=== PATIENT | male | born 1970 | race Two or more races ===

== ENCOUNTER 2023-02-06 22:50 | Inpatient (IN) | payer MEDICAID, OTHER ==
[~2023-02-06] VITALS: Ht 172.7 cm; Wt 71.0 kg
[2023-02-06] MEDS ORDERED: cloNIDine HCL 0.1 MG TAB PO ONE (23:15)
[2023-02-06 23:38] LABS: Basophils # (auto) 0 10 ^3/uL (0-0.2); Basophils % (auto) 0.4 % (0.0-2.0); Eosinophils # (auto) 0.1 10 ^3/uL (0-0.8); Eosinophils % (auto) 0.9 % (0.0-7.0); Hematocrit 47.7 % (41.0-53.0); Hemoglobin 16.9 g/dL (13.5-17.5); Lymphocytes # (auto) 2.1 10 ^3/uL (0.4-5.4); Lymphocytes % (auto) 32.8 % (10.0-50.0); Mean Corpuscular Hemoglobin 32.6 pg (28.0-32.0); Mean Corpuscular Hgb Conc. 35.5 g/dL (32.0-36.0); Monocytes # (auto) 0.6 10 ^3/uL (0-1.3); Neutrophils # (auto) 3.7 10 ^3/uL (1.6-8.6); Neutrophils % (auto) 56.9 % (37.0-80.0); Nucleated Red Blood Cells % 0.2 %; Red Blood Cells 5.18 10^6/uL (4.5-5.90); Red Cell Distribution Width 13.4 % (11.8-14.3); White Blood Cell 6.5 10^3/uL (4.4-10.8)
[2023-02-06 23:45] LABS: Alanine Aminotransferase 43 U/L (7-40); Albumin 4.7 g/dL (3.2-4.8); Alkaline Phosphatase 183 U/L (46-116); Anion Gap 8 (5-15); Aspartate Aminotransferase 41 U/L (13-40); Blood Urea Nitrogen 13 mg/dL (9-23); Calcium 9.7 mg/dL (8.7-10.4); Carbon Dioxide 26 mmol/L (20-30); Chloride 98 mmol/L (98-107); Glucose 328 mg/dL (74-106); Magnesium 1.9 mg/dL (1.6-2.6); Potassium 3.7 mmol/L (3.5-5.1); Sodium 132 mmol/L (136-145)
[2023-02-06 23:46] LABS: Bilirubin, Total 2.2 mg/dL (0.2-1.0); Total Protein 7.8 g/dL (5.7-8.2)
[2023-02-06 23:51] LABS: INR 1.05 (0.9-1.15); Partial Thromboplastin Time 27.5 SEC (24.5-34.5)
[2023-02-07 00:40] VITALS: PULSE 93; RESP 18; O2SAT 94
[2023-02-07] MEDS ORDERED: PANTOPRAZOLE 40 MG/10 ML VIAL INJ IV ONE (04:00)
[2023-02-07] MEDS ORDERED: ASPirin 81 mg TAB PO ONE (04:00)
[2023-02-07] MEDS ORDERED: NITROGLYCERIN 0.2MG/HR TOPICAL PATCH TD ONE (04:00)
[2023-02-07] MEDS ORDERED: InsuLIN REG 1unit/0.01ml Soln (100units/ml) IV ONE (04:00)
[2023-02-07] MEDS ORDERED: ENOXAPARIN SOD 100 MG/1 ML SYRINGE SC ONE (04:00)
[2023-02-07] MEDS ORDERED: SODIUM CHLORIDE 0.9% 1,000 ML IVB ONE (04:00)
[2023-02-07] MEDS ORDERED: ONDANSETRON HCL 4 MG/2 ML VIAL IV ONE (04:00)
[2023-02-07] MEDS: ACETAMINOPHEN 325 MG TAB PO ONE ×2 (04:12→04:28)
[2023-02-07] MEDS ORDERED: ONDANSETRON HCL 4 MG/2 ML VIAL IV PRN (04:30)
[2023-02-07] MEDS ORDERED: HYDROcodone-ACET 5/325MG TAB PO PRN (04:30)
[2023-02-07] MEDS ORDERED: SODIUM CHLORIDE 0.9% 1,000 ML IV SCH (04:30)
[2023-02-07] MEDS ORDERED: DOCUSATE SOD 100 MG CAP PO PRN (04:30)
[2023-02-07] MEDS ORDERED: MORPHINE SULFATE INJ 2 MG/ml SYRG IV PRN ×2 (04:30→04:45)
[2023-02-07] MEDS ORDERED: DEXTROSE (50%) 50ML SYRG IV PRN (04:30)
[2023-02-07] MEDS ORDERED: NITROGLYCERIN 0.4 MG SL TAB SL PRN (04:45)
[2023-02-07 04:57] LABS: Urine Bacteria NONE SEEN /hpf (None Seen); Urine Blood TRACE /uL (Negative); Urine Clarity Clear (Clear); Urine Color Yellow (Yellow); Urine Protein, UAD 2+ (Negative); Urine Specific Gravity 1.045 (1.001-1.035); Urine WBC 2 /hpf (0 - 3); Urine pH 6.5 (5.0-8.0)
[2023-02-07 05:10] LABS: Basophils # (auto) 0 10 ^3/uL (0-0.2); Basophils % (auto) 0.3 % (0.0-2.0); Eosinophils # (auto) 0.1 10 ^3/uL (0-0.8); Eosinophils % (auto) 1.6 % (0.0-7.0); Hematocrit 41.5 % (41.0-53.0); Hemoglobin 14.7 g/dL (13.5-17.5); Lymphocytes # (auto) 1.7 10 ^3/uL (0.4-5.4); Lymphocytes % (auto) 33.9 % (10.0-50.0); Mean Corpuscular Hemoglobin 32.8 pg (28.0-32.0); Mean Corpuscular Hgb Conc. 35.4 g/dL (32.0-36.0); Mean Corpuscular Volume 92.6 fL (80.0-100.0); Monocytes # (auto) 0.5 10 ^3/uL (0-1.3); Monocytes % (auto) 9.8 % (0.0-12.0); Neutrophils # (auto) 2.8 10 ^3/uL (1.6-8.6); Neutrophils % (auto) 54.4 % (37.0-80.0); Nucleated Red Blood Cells % 0.1 %; Red Blood Cells 4.48 10^6/uL (4.5-5.90); Red Cell Distribution Width 13.6 % (11.8-14.3); White Blood Cell 5.2 10^3/uL (4.4-10.8)
[2023-02-07] MEDS: ACCU-CHEK COMFORT CURVE STRIP VI SCH ×3 (06:00→18:58)
[2023-02-07] MEDS: InsuLIN REG 1unit/0.01ml Soln (100units/ml) SC SCH ×3 (06:01→19:02)
[2023-02-07 07:20] VITALS: PULSE 80; RESP 16; O2SAT 95
[2023-02-07 09:43] LABS: Alanine Aminotransferase 37 U/L (7-40); Albumin 3.8 g/dL (3.2-4.8); Alkaline Phosphatase 142 U/L (46-116); Anion Gap 11 (5-15); Aspartate Aminotransferase 43 U/L (13-40); BUN/Creatinine Ratio 15.7 (10.0-20.0); Bilirubin, Total 1.6 mg/dL (0.2-1.0); Blood Urea Nitrogen 13 mg/dL (9-23); Calcium 9.2 mg/dL (8.5-10.1); Carbon Dioxide 22 mmol/L (20-30); Chloride 101 mmol/L (98-107); Glucose 233 mg/dL (74-106); Potassium 3.2 mmol/L (3.5-5.1); Sodium 134 mmol/L (136-145); Total Protein 6.3 g/dL (5.7-8.2)
[2023-02-07] MEDS ORDERED: PANTOPRAZOLE 40 MG/10 ML VIAL INJ IV SCH (10:00)
[2023-02-07] MEDS: ASPirin 81 mg TAB PO SCH (11:40)
[2023-02-07] MEDS: ENOXAPARIN SOD 100 MG/1 ML SYRINGE SC SCH ×2 (11:41→21:22)
[2023-02-07] MEDS ORDERED: AZITHROMYCIN 250 MG TAB PO ONE (13:45)
[2023-02-07 16:27] LABS: COVID19 ANTIGEN SOFIA FIA NEGATIVE (NEGATIVE)
[2023-02-07] MEDS: ACETAMINOPHEN 500 MG TAB PO PRN (19:51)
[2023-02-07] MEDS: cloNIDine HCL 0.1 MG TAB PO PRN (21:14)
[2023-02-07] MEDS ORDERED: ATORVASTATIN 20 MG TAB PO SCH (22:00)
[2023-02-08] MEDS: ACCU-CHEK COMFORT CURVE STRIP VI SCH ×4 (00:28→18:00)
[2023-02-08] MEDS: InsuLIN REG 1unit/0.01ml Soln (100units/ml) SC SCH ×4 (00:39→18:00)
[2023-02-08 05:37] LABS: Basophils # (auto) 0 10 ^3/uL (0-0.2); Eosinophils # (auto) 0.1 10 ^3/uL (0-0.8); Hemoglobin 14.4 g/dL (13.5-17.5); Lymphocytes # (auto) 1.4 10 ^3/uL (0.4-5.4); Monocytes # (auto) 0.4 10 ^3/uL (0-1.3); Neutrophils # (auto) 1.7 10 ^3/uL (1.6-8.6); Red Cell Distribution Width 13.5 % (11.8-14.3)
[2023-02-08 05:40] LABS: Basophils % (auto) 0.5 % (0.0-2.0); Eosinophils % (auto) 1.7 % (0.0-7.0); Hematocrit 40.3 % (41.0-53.0); Mean Corpuscular Hgb Conc. 35.8 g/dL (32.0-36.0); Mean Corpuscular Volume 92.3 fL (80.0-100.0); Monocytes % (auto) 10.7 % (0.0-12.0); Neutrophils % (auto) 48.1 % (37.0-80.0); Nucleated Red Blood Cells % 0.5 %; Red Blood Cells 4.37 10^6/uL (4.5-5.90); White Blood Cell 3.5 10^3/uL (4.4-10.8)
[2023-02-08 05:45] LABS: Alanine Aminotransferase 42 U/L (7-40); Albumin 3.7 g/dL (3.2-4.8); Alkaline Phosphatase 128 U/L (46-116); Anion Gap 6 (5-15); Aspartate Aminotransferase 48 U/L (13-40); BUN/Creatinine Ratio 13.7 (10.0-20.0); Bilirubin, Total 1.7 mg/dL (0.2-1.0); Blood Urea Nitrogen 14 mg/dL (9-23); Calcium 8.7 mg/dL (8.7-10.4); Carbon Dioxide 25 mmol/L (20-30); Chloride 103 mmol/L (98-107); Glucose 331 mg/dL (74-106); Potassium 3.6 mmol/L (3.5-5.1); Sodium 134 mmol/L (136-145); Total Protein 6.1 g/dL (5.7-8.2)
[2023-02-08] MEDS ORDERED: ADENOSINE 78 MG in GIVE UN-DILUTED 0 ML IV STA (07:19)
[2023-02-08 08:20] VITALS: BP 141/92; PULSE 99; RESP 16; TEMP 97.8; O2SAT 97
[2023-02-08] MEDS ORDERED: AZITHROMYCIN 250 MG TAB PO SCH (10:00)
[2023-02-08] MEDS ORDERED: LISINOPRIL 10 MG TAB PO ONE (11:45)
[2023-02-08] MEDS: ASPirin 81 mg TAB PO SCH (12:46)
[2023-02-08] MEDS: PANTOPRAZOLE 40 MG TAB PO SCH (12:47)
[2023-02-08 13:28] VITALS: BP 159/117; PULSE 102; RESP 18; TEMP 97.6; O2SAT 98
[2023-02-08 17:17] VITALS: BP 148/99; PULSE 65; RESP 20; TEMP 98.4; O2SAT 94
[2023-02-08 20:00] VITALS: PULSE 98; RESP 18; O2SAT 98
[2023-02-08 22:00] VITALS: BP 144/90; PULSE 69; RESP 20; TEMP 98.3; O2SAT 95
[2023-02-08] MEDS: ATORVASTATIN 20 MG TAB PO SCH (22:21)
[2023-02-09] VITALS (7 sets, daily range): BP systolic 142–159; BP diastolic 62–100; PULSE 66–93; RESP 15–22; TEMP 97.7–98.5; O2SAT 94–98
[2023-02-09] MEDS: ACCU-CHEK COMFORT CURVE STRIP VI SCH ×4 (00:48→18:10)
[2023-02-09] MEDS: InsuLIN REG 1unit/0.01ml Soln (100units/ml) SC SCH ×4 (00:49→18:12)
[2023-02-09] MEDS: ACETAMINOPHEN 500 MG TAB PO PRN (01:15)
[2023-02-09 07:04] LABS: Chloride 104 mmol/L (98-107); Potassium 3.6 mmol/L (3.5-5.1); Sodium 136 mmol/L (136-145)
[2023-02-09 07:05] LABS: Anion Gap 8 (5-15); Calcium 9.4 mg/dL (8.5-10.1); Carbon Dioxide 24 mmol/L (20-30)
[2023-02-09 07:10] LABS: BUN/Creatinine Ratio 11.5 (10.0-20.0); Blood Urea Nitrogen 10 mg/dL (9-23); Triglycerides 157 mg/dL (< 150)
[2023-02-09 07:11] LABS: LDL Cholesterol 97 mg/dL (< 100)
[2023-02-09 07:12] LABS: Cholesterol 175 mg/dL (< 200); HDL Cholesterol 54 mg/dL (40-59)
[2023-02-09 07:18] LABS: Glucose 207 mg/dL (74-106)
[2023-02-09] MEDS: PANTOPRAZOLE 40 MG TAB PO SCH (09:58)
[2023-02-09] MEDS: ASPirin 81 mg TAB PO SCH (09:58)
[2023-02-09] MEDS ORDERED: LISINOPRIL 10 MG TAB PO SCH (10:00)
[2023-02-09] MEDS ORDERED: METOPROLOL TARTRATE 25 MG TAB PO ONE (12:45)
[2023-02-09] MEDS ORDERED: LISINOPRIL 10 MG TAB PO ONE (14:15)
[2023-02-09] MEDS: METOPROLOL TARTRATE 25 MG TAB PO SCH (22:18)
[2023-02-09] MEDS: ATORVASTATIN 20 MG TAB PO SCH (22:18)
[2023-02-10] VITALS (10 sets, daily range): BP systolic 113–161; BP diastolic 59–102; PULSE 74–101; RESP 12–22; TEMP 97.8–98.6; O2SAT 93–98
[2023-02-10] MEDS: InsuLIN REG 1unit/0.01ml Soln (100units/ml) SC SCH ×4 (01:00→17:19)
[2023-02-10] MEDS: ACCU-CHEK COMFORT CURVE STRIP VI SCH ×4 (01:00→17:16)
[2023-02-10] MEDS: cloNIDine HCL 0.1 MG TAB PO PRN ×2 (04:45→23:30)
[2023-02-10] MEDS: ASPirin 81 mg TAB PO SCH (09:43)
[2023-02-10] MEDS: PANTOPRAZOLE 40 MG TAB PO SCH (09:44)
[2023-02-10] MEDS: METOPROLOL TARTRATE 25 MG TAB PO SCH ×2 (09:46→22:38)
[2023-02-10] MEDS: LISINOPRIL 10 MG TAB PO SCH (09:46)
[2023-02-10] MEDS ORDERED: IODIXANOL 320MG/ML 100ML BTL IV ONE (14:22)
[2023-02-10] MEDS ORDERED: LIDOCAINE 2%HCL (LOCAL ANESTH.) INJ 20ML MDV ONE (14:23)
[2023-02-10] MEDS ORDERED: fentaNYL CITRATE 100 MCG/2 ML VL ONE (14:40)
[2023-02-10] MEDS ORDERED: MIDAZOLAM HCL 2MG/2ML 2ml VIAL (1mg/ml) ONE (14:40)
[2023-02-10] MEDS ORDERED: VERAPAMIL 2.5MG/ML INJ 2ML VIAL IV ONE (14:40)
[2023-02-10] MEDS ORDERED: HEPARIN SODIUM (PORCINE) 5000 UNITS/ML 1ML VIAL ONE (14:40)
[2023-02-10] MEDS ORDERED: ANGIOMAX 250 MG VIAL IV ONE (14:40)
[2023-02-10] MEDS ORDERED: SODIUM CHL 0.9% 50 ML ONE (14:40)
[2023-02-10] MEDS ORDERED: CLOPIDOGREL 300 MG TAB ONE (15:22)
[2023-02-10] MEDS ORDERED: ASPirin 81 mg TAB ONE (15:23)
[2023-02-10 18:52] LABS: Basophils # (auto) 0 10 ^3/uL (0-0.2); Basophils % (auto) 0.6 % (0.0-2.0); Eosinophils # (auto) 0.1 10 ^3/uL (0-0.8); Eosinophils % (auto) 1.2 % (0.0-7.0); Hematocrit 47.6 % (41.0-53.0); Hemoglobin 16.6 g/dL (13.5-17.5); Lymphocytes # (auto) 1.8 10 ^3/uL (0.4-5.4); Lymphocytes % (auto) 34.3 % (10.0-50.0); Mean Corpuscular Hemoglobin 32.5 pg (28.0-32.0); Mean Corpuscular Hgb Conc. 34.9 g/dL (32.0-36.0); Mean Corpuscular Volume 93.2 fL (80.0-100.0); Monocytes # (auto) 0.5 10 ^3/uL (0-1.3); Neutrophils # (auto) 2.9 10 ^3/uL (1.6-8.6); Neutrophils % (auto) 54.9 % (37.0-80.0); Nucleated Red Blood Cells % 0.3 %; Red Blood Cells 5.11 10^6/uL (4.5-5.90); White Blood Cell 5.4 10^3/uL (4.4-10.8)
[2023-02-10 19:09] LABS: INR 1.22 (0.9-1.15); Partial Thromboplastin Time 42.5 SEC (24.5-34.5); Prothrombin Time 12.6 sec (9.3-11.8)
[2023-02-10] MEDS ORDERED: INSULIN LANTUS (GLARGINE) 1 /0.01ml (100units/ml) SC SCH (22:00)
[2023-02-10] MEDS: ATORVASTATIN 20 MG TAB PO SCH (22:36)
[2023-02-11] VITALS (7 sets, daily range): BP systolic 120–143; BP diastolic 70–93; PULSE 66–100; RESP 19–20; TEMP 36.9; O2SAT 96–100
[2023-02-11] MEDS: InsuLIN REG 1unit/0.01ml Soln (100units/ml) SC SCH ×4 (00:44→18:00)
[2023-02-11] MEDS: ACCU-CHEK COMFORT CURVE STRIP VI SCH ×4 (06:19→18:00)
[2023-02-11 06:51] LABS: Anion Gap 7 (5-15); Carbon Dioxide 25 mmol/L (20-30); Chloride 102 mmol/L (98-107); Potassium 3.6 mmol/L (3.5-5.1); Sodium 134 mmol/L (136-145)
[2023-02-11 06:52] LABS: Calcium 9.1 mg/dL (8.5-10.1)
[2023-02-11 06:57] LABS: BUN/Creatinine Ratio 17.1 (10.0-20.0); Blood Urea Nitrogen 19 mg/dL (9-23); Glucose 235 mg/dL (74-106)
[2023-02-11 06:58] LABS: Basophils # (auto) 0 10 ^3/uL (0-0.2); Basophils % (auto) 0.3 % (0.0-2.0); Eosinophils # (auto) 0.1 10 ^3/uL (0-0.8); Eosinophils % (auto) 1.8 % (0.0-7.0); Hematocrit 41.3 % (41.0-53.0); Hemoglobin 14.7 g/dL (13.5-17.5); Lymphocytes # (auto) 1.5 10 ^3/uL (0.4-5.4); Mean Corpuscular Hemoglobin 33.1 pg (28.0-32.0); Mean Corpuscular Hgb Conc. 35.6 g/dL (32.0-36.0); Mean Corpuscular Volume 92.8 fL (80.0-100.0); Monocytes # (auto) 0.7 10 ^3/uL (0-1.3); Monocytes % (auto) 11.5 % (0.0-12.0); Neutrophils # (auto) 3.6 10 ^3/uL (1.6-8.6); Neutrophils % (auto) 60.4 % (37.0-80.0); Nucleated Red Blood Cells % 0.6 %; Red Blood Cells 4.45 10^6/uL (4.5-5.90); Red Cell Distribution Width 13.7 % (11.8-14.3); White Blood Cell 5.9 10^3/uL (4.4-10.8)
[2023-02-11] MEDS: ASPirin 81 mg TAB PO SCH (09:20)
[2023-02-11] MEDS: LISINOPRIL 10 MG TAB PO SCH (09:21)
[2023-02-11] MEDS: METOPROLOL TARTRATE 25 MG TAB PO SCH (09:22)
[2023-02-11] MEDS: PANTOPRAZOLE 40 MG TAB PO SCH (09:22)
[2023-02-11] MEDS ORDERED: CLOPIDOGREL BISULFATE 75 MG TAB PO SCH (10:00)
[2023-02-11] MEDS ORDERED: ATOR20TA50 PO (13:08)
[2023-02-11] MEDS ORDERED: METF-371 PO (13:08)
[2023-02-11] MEDS ORDERED: METO25TA36 PO (13:08)
[2023-02-11] MEDS ORDERED: CLOP75TA70 PO (13:08)
[2023-02-11] MEDS ORDERED: GLIM2TAB33 PO (13:08)
[2023-02-11] MEDS ORDERED: LISI10TA34 PO (13:08)
[2023-02-11] MEDS ORDERED: ASPI-325 PO (13:08)
[2023-02-11] MEDS ORDERED: PANT40T PO (13:08)
== END 2023-02-11 19:00 | disposition home or self-care (01) | DRG 175 ==
LOC: ER 22:50 → TELE 02-07 04:41 → TELE-WESTW 02-08 09:01
PROVIDERS: ADMIT Nurse Practitioner Family; ATTEND Internal Medicine
PROC: 02703DZ Dilation of Coronary Artery, One Artery with Intraluminal Device, Percutaneous Approach (ICD-10-PCS; principal; 2023-02-10)
PROC: B2111ZZ Fluoroscopy of Multiple Coronary Arteries using Low Osmolar Contrast (ICD-10-PCS; 2023-02-10)
PROC: B2151ZZ Fluoroscopy of Left Heart using Low Osmolar Contrast (ICD-10-PCS; 2023-02-10)
PROC: 4A023N7 Measurement of Cardiac Sampling and Pressure, Left Heart, Percutaneous Approach (ICD-10-PCS; 2023-02-10)
PROC: 4A033BC Measurement of Arterial Pressure, Coronary, Percutaneous Approach (ICD-10-PCS; 2023-02-10)
DX: T82.855A Stenosis of coronary artery stent, initial encounter (principal); I21.4 Non-ST elevation (NSTEMI) myocardial infarction; D69.6 Thrombocytopenia, unspecified; E87.1 Hypo-osmolality and hyponatremia; I16.0 Hypertensive urgency; I25.10 Atherosclerotic heart disease of native coronary artery without angina pectoris; E78.5 Hyperlipidemia, unspecified; E11.65 Type 2 diabetes mellitus with hyperglycemia; E78.00 Pure hypercholesterolemia, unspecified; I10 Essential (primary) hypertension; Z20.822 Contact with and (suspected) exposure to COVID-19; Y83.8 Other surgical procedures as the cause of abnormal reaction of the patient, or of later complication, without mention of misadventure at the time of the procedure; R74.01 Elevation of levels of liver transaminase levels; F10.10 Alcohol abuse, uncomplicated; Y90.9 Presence of alcohol in blood, level not specified; Z82.49 Family history of ischemic heart disease and other diseases of the circulatory system; Y92.89 Other specified places as the place of occurrence of the external cause; Z91.199 Patient's noncompliance with other medical treatment and regimen due to unspecified reason; Z79.02 Long term (current) use of antithrombotics/antiplatelets; Z79.82 Long term (current) use of aspirin; Z79.899 Other long term (current) drug therapy; Z79.84 Long term (current) use of oral hypoglycemic drugs
CPT/HCPCS: 36415; 71045; 78452; 80048; 80053; 80061; 81001; 82962; 83036; 83735; 83880; 84484; 85025; 85610; 85730; 86850; 86900; 86901; 87426; 92941; 93005; 93017; 93306; 93458; 99152; C1887; C9113; G0378; J0153; J1815; J2250; Q9967

== ENCOUNTER 2023-02-25 00:49 | Inpatient (IN) | payer MEDICAID ==
[~2023-02-25] VITALS: Ht 172.7 cm; Wt 88.2 kg
[~2023-02-25 00:49] MED LIST: ASPI-325 PO; ATOR20TA50 PO; CLOP75TA70 PO; GLIM2TAB33 PO; LISI10TA34 PO; METF-371 PO; METO25TA36 PO; PANT40T PO
[2023-02-25 02:26] LABS: Basophils # (auto) 0 10 ^3/uL (0-0.2); Basophils % (auto) 0.7 % (0.0-2.0); Eosinophils # (auto) 0.1 10 ^3/uL (0-0.8); Eosinophils % (auto) 1.6 % (0.0-7.0); Hematocrit 45.2 % (41.0-53.0); Hemoglobin 15.7 g/dL (13.5-17.5); Lymphocytes % (auto) 33.5 % (10.0-50.0); Mean Corpuscular Hemoglobin 32.5 pg (28.0-32.0); Mean Corpuscular Hgb Conc. 34.8 g/dL (32.0-36.0); Mean Corpuscular Volume 93.2 fL (80.0-100.0); Monocytes # (auto) 0.4 10 ^3/uL (0-1.3); Monocytes % (auto) 7.5 % (0.0-12.0); Neutrophils # (auto) 3.3 10 ^3/uL (1.6-8.6); Neutrophils % (auto) 56.7 % (37.0-80.0); Nucleated Red Blood Cells % 0.1 %; Red Blood Cells 4.85 10^6/uL (4.5-5.90); Red Cell Distribution Width 13.3 % (11.8-14.3); White Blood Cell 5.8 10^3/uL (4.4-10.8)
[2023-02-25 02:45] LABS: INR 1.08 (0.9-1.15); Prothrombin Time 11.3 sec (9.3-11.8)
[2023-02-25 02:52] LABS: Alanine Aminotransferase 45 U/L (7-40); Albumin 4.7 g/dL (3.2-4.8); Alkaline Phosphatase 170 U/L (46-116); Anion Gap 8 (5-15); Aspartate Aminotransferase 29 U/L (13-40); BUN/Creatinine Ratio 15.2 (10.0-20.0); Bilirubin, Total 1.1 mg/dL (0.2-1.0); Blood Urea Nitrogen 17 mg/dL (9-23); Calcium 9.4 mg/dL (8.7-10.4); Carbon Dioxide 26 mmol/L (20-30); Chloride 104 mmol/L (98-107); Glucose 249 mg/dL (74-106); Magnesium 1.6 mg/dL (1.6-2.6); Potassium 4.1 mmol/L (3.5-5.1); Sodium 138 mmol/L (136-145); Total Protein 7.3 g/dL (5.7-8.2)
[2023-02-25] MEDS ORDERED: ENOXAPARIN SOD 100 MG/1 ML SYRINGE SC ONE (06:00)
[2023-02-25] MEDS ORDERED: ASPirin 325 MG TAB PO ONE (06:00)
[2023-02-25] MEDS ORDERED: METOPROLOL TARTRATE 1MG/1ML-5ML VIAL IV ONE (06:00)
[2023-02-25 06:37] VITALS: PULSE 100; RESP 20; O2SAT 98
[2023-02-25] MEDS ORDERED: ACETAMINOPHEN 325 MG TAB PO PRN (12:00)
[2023-02-25] MEDS ORDERED: ONDANSETRON HCL 4 MG/2 ML VIAL IV PRN (12:00)
[2023-02-25] MEDS ORDERED: MORPHINE SULFATE 4 MG/ML SYR/VIAL IV PRN (12:00)
[2023-02-25] MEDS ORDERED: NITROGLYCERIN 0.4 MG SL TAB SL PRN (12:00)
[2023-02-25] MEDS ORDERED: DEXTROSE (50%) 50ML SYRG IV PRN (12:00)
[2023-02-25 13:46] LABS: INR 1.09 (0.9-1.15); Prothrombin Time 11.4 sec (9.3-11.8)
[2023-02-25] MEDS ORDERED: ACETAMINOPHEN 650 mg PER 20.3 mL UD PO STA (14:44)
[2023-02-25] MEDS ORDERED: hydrALAZINE HCL 20 MG/ML VL IV PRN (15:45)
[2023-02-25 16:53] VITALS: BP 157/98; PULSE 103; RESP 16; TEMP 97.5; O2SAT 99
[2023-02-25] MEDS ORDERED: ACETAMINOPHEN 325 MG TAB PO ONE (16:56)
[2023-02-25] MEDS ORDERED: hydrALAZINE HCL 20 MG/ML VL ONE (16:56)
[2023-02-25] MEDS: hydrALAZINE HCL 20 MG/ML VL IV PRN (17:00)
[2023-02-25 17:45] VITALS: BP 135/84; PULSE 100
[2023-02-25] MEDS ORDERED: InsuLIN REG 1unit/0.01ml Soln (100units/ml) ONE ×2 (18:27→22:51)
[2023-02-25] MEDS: ACCU-CHEK COMFORT CURVE STRIP VI SCH ×2 (18:28→23:12)
[2023-02-25] MEDS: InsuLIN REG 1unit/0.01ml Soln (100units/ml) SC SCH (18:29)
[2023-02-25 19:30] VITALS: BP 153/91; PULSE 88; RESP 18; RESP 20; TEMP 97.3; O2SAT 91; O2SAT 98
[2023-02-25 19:50] VITALS: BP 153/91; PULSE 108; PULSE 88; RESP 20; TEMP 97.3; O2SAT 91
[2023-02-25] MEDS ORDERED: ATORVASTATIN 20 MG TAB PO SCH (22:00)
[2023-02-25] MEDS ORDERED: InsuLIN REG 1unit/0.01ml Soln (100units/ml) SC SCH (22:00)
[2023-02-25] MEDS ORDERED: METOPROLOL TARTRATE 25 MG TAB PO SCH (22:00)
[2023-02-25 23:54] VITALS: BP 153/91; PULSE 88; RESP 20; TEMP 97.3; O2SAT 98
[2023-02-26 05:40] VITALS: BP 152/84; PULSE 79; RESP 18; TEMP 97.5; O2SAT 97
[2023-02-26] MEDS: hydrALAZINE HCL 20 MG/ML VL IV PRN (05:54)
[2023-02-26 05:57] LABS: Basophils # (auto) 0 10 ^3/uL (0-0.2); Basophils % (auto) 0.7 % (0.0-2.0); Eosinophils # (auto) 0.1 10 ^3/uL (0-0.8); Eosinophils % (auto) 2.3 % (0.0-7.0); Hematocrit 43.1 % (41.0-53.0); Hemoglobin 15.2 g/dL (13.5-17.5); Lymphocytes # (auto) 2.6 10 ^3/uL (0.4-5.4); Lymphocytes % (auto) 44.4 % (10.0-50.0); Mean Corpuscular Hemoglobin 32.5 pg (28.0-32.0); Mean Corpuscular Hgb Conc. 35.2 g/dL (32.0-36.0); Mean Corpuscular Volume 92.3 fL (80.0-100.0); Monocytes # (auto) 0.6 10 ^3/uL (0-1.3); Monocytes % (auto) 10.3 % (0.0-12.0); Neutrophils # (auto) 2.5 10 ^3/uL (1.6-8.6); Neutrophils % (auto) 42.3 % (37.0-80.0); Nucleated Red Blood Cells % 0.3 %; Red Blood Cells 4.67 10^6/uL (4.5-5.90); Red Cell Distribution Width 13.4 % (11.8-14.3); White Blood Cell 5.9 10^3/uL (4.4-10.8)
[2023-02-26] MEDS: ACCU-CHEK COMFORT CURVE STRIP VI SCH ×3 (05:58→17:00)
[2023-02-26] MEDS: InsuLIN REG 1unit/0.01ml Soln (100units/ml) SC SCH ×3 (05:58→17:00)
[2023-02-26 06:19] LABS: Alanine Aminotransferase 45 U/L (7-40); Alkaline Phosphatase 140 U/L (46-116); Anion Gap 11 (5-15); BUN/Creatinine Ratio 16.7 (10.0-20.0); Blood Urea Nitrogen 14 mg/dL (9-23); Calcium 9.7 mg/dL (8.5-10.1); Carbon Dioxide 24 mmol/L (20-30); Chloride 104 mmol/L (98-107); Potassium 3.9 mmol/L (3.5-5.1); Sodium 139 mmol/L (136-145)
[2023-02-26 06:20] LABS: Albumin 4.5 g/dL (3.2-4.8); Aspartate Aminotransferase 30 U/L (13-40); Bilirubin, Total 1.2 mg/dL (0.2-1.0); Total Protein 7.1 g/dL (5.7-8.2)
[2023-02-26 06:37] LABS: Glucose 127 mg/dL (74-106)
[2023-02-26 06:40] VITALS: BP 142/81
[2023-02-26 08:00] VITALS: BP 152/77; PULSE 81; PULSE 85; RESP 16; RESP 20; TEMP 97.5; O2SAT 91
[2023-02-26 09:00] VITALS: BP 152/77; PULSE 85; RESP 16; TEMP 97.5; O2SAT 98
[2023-02-26] MEDS ORDERED: ASPirin-EC 81 mg tab PO SCH (10:00)
[2023-02-26] MEDS ORDERED: LISINOPRIL 10 MG TAB PO SCH (10:00)
[2023-02-26] MEDS ORDERED: DOCUSATE SOD 100 MG CAP PO SCH (10:00)
[2023-02-26] MEDS ORDERED: CLOPIDOGREL BISULFATE 75 MG TAB PO SCH (10:00)
[2023-02-26] MEDS ORDERED: PANTOPRAZOLE 40 MG TAB PO SCH (10:00)
[2023-02-26] MEDS ORDERED: MET50T PO (10:45)
[2023-02-26] MEDS ORDERED: SACU1TAB PO (10:45)
[2023-02-26] MEDS ORDERED: EMPA1TAB PO (10:45)
[2023-02-26] MEDS ORDERED: EMPAGLIFLOZIN 10 MG TAB PO SCH (10:48)
[2023-02-26] MEDS ORDERED: IBUPROFEN 400 MG TAB PO ONE (11:45)
[2023-02-26] MEDS ORDERED: MORPHINE SULFATE INJ 2 MG/ml SYRG IV PRN (12:15)
[2023-02-26] MEDS ORDERED: NITROGLYCERIN 0.4 MG SL TAB SL PRN (12:15)
[2023-02-26] MEDS ORDERED: ERGOCALCIFEROL 50,000 UNIT(1.25MG) CAP PO SCH (12:45)
[2023-02-26 13:00] VITALS: BP 148/91; PULSE 91; RESP 16; TEMP 98.5; O2SAT 97
[2023-02-26 16:29] VITALS: BP 156/86; PULSE 92; RESP 16; TEMP 36.9; O2SAT 98
[2023-02-26] MEDS ORDERED: SACUBITRIL-VALSARTAN 24mg/26mg TAB PO SCH (22:00)
[2023-02-26] MEDS ORDERED: METOPROLOL TARTRATE 50 MG TAB PO SCH (22:00)
== END 2023-02-26 19:33 | disposition home or self-care (01) | DRG 199 ==
LOC: ER 00:49 → TELE 12:06 → TELE-CENTR 16:32 → CENTRAL 02-26 12:10
PROVIDERS: ADMIT Internal Medicine; ATTEND Internal Medicine
DX: I16.1 Hypertensive emergency (principal); I21.A1 Myocardial infarction type 2; I50.22 Chronic systolic (congestive) heart failure; I11.0 Hypertensive heart disease with heart failure; E11.65 Type 2 diabetes mellitus with hyperglycemia; E66.9 Obesity, unspecified; E78.5 Hyperlipidemia, unspecified; I25.10 Atherosclerotic heart disease of native coronary artery without angina pectoris; R51.9 Headache, unspecified; R74.01 Elevation of levels of liver transaminase levels; E55.9 Vitamin D deficiency, unspecified; Z87.891 Personal history of nicotine dependence; Z95.5 Presence of coronary angioplasty implant and graft
CPT/HCPCS: 36415; 70450; 71045; 78452; 80053; 82306; 82607; 82962; 83735; 84443; 84484; 85025; 85610; 85730; 87081; 93005; 99291; G0378; J1815

== ENCOUNTER 2024-11-17 10:24 | Outpatient (CLI) | payer MEDICAID ==
[~2024-11-17 10:24] MED LIST changes: +EMPA1TAB PO; -LISI10TA34 PO; +MET50T PO; -METO25TA36 PO; +SACU1TAB PO
== END 2024-11-17 17:00 | disposition home or self-care (01) ==
LOC: Rad HDHVI 10:24
PROVIDERS: ATTEND Internal Medicine Cardiovascular Disease
DX: I49.1 Atrial premature depolarization (principal); I49.3 Ventricular premature depolarization; R00.0 Tachycardia, unspecified; Z13.6 Encounter for screening for cardiovascular disorders; R06.00 Dyspnea, unspecified; I10 Essential (primary) hypertension; E78.00 Pure hypercholesterolemia, unspecified; E11.9 Type 2 diabetes mellitus without complications; R06.02 Shortness of breath; R00.2 Palpitations
CPT/HCPCS: 78452; 93017; A9500; 96374

== ENCOUNTER 2024-11-20 11:14 | Outpatient (CLI) | payer MEDICAID | END 2024-11-20 17:00 | disposition home or self-care (01) | LOC: Rad HDHVI 11:14 | PROVIDERS: ATTEND Internal Medicine Cardiovascular Disease | DX: I34.0 Nonrheumatic mitral (valve) insufficiency (principal); R06.02 Shortness of breath | CPT/HCPCS: 93306 ==